=== PATIENT | female | born 2000 | race Caucasian/White ===

== ENCOUNTER 2018-08-31 20:53 | Emergency (ER) | payer MEDICAID, OTHER ==
[2018-08-31] MEDS ORDERED: DEXAMETHASONE SOD PHOS INJ 10 MG/1 ML VIAL IM ONE (22:32)
[2018-08-31] MEDS ORDERED: KETOROLAC TROMETHAMINE INJ/PF 30 MG/1 ML SDV IM ONE (22:32)
[2018-08-31] MEDS ORDERED: OXYCODONE-ACETAMINOPHEN 5-325 MG TABLET PO ONE (22:33)
--- NOTE | 2018-08-31 22:38 | ER Document Report ---
ED General - General Chief Complaint: Low Back Pain Stated Complaint: SCIATICA PAIN Time Seen by Provider: 08/31/18 22:25 Mode of Arrival: Ambulatory Information source: Patient TRAVEL OUTSIDE OF THE U.S. IN LAST 30 DAYS: No - HPI Patient complains to provider of: "sciatica" Onset: Last week Onset/Duration: Gradual Quality of pain: Sharp, Stabbing Severity: Severe Pain Level: 5 Context: No recent injury or exacerbating event Associated symptoms: None Exacerbated by: Denies Relieved by: Denies Similar symptoms previously: No Recently seen / treated by doctor: No Notes: 17-year-old female coming in today with left-sided "sciatica". Patient has had this diagnosis for couple of years. She is visiting here from [place]. Apparently the walk-in clinic is tried multiple remedies that have not helped her. She had some plain films done which were also negative. She denies bladder bowel dysfunction. Denies denies focal weakness. Denies urinary symptoms. Past Medical History - General Information source: Patient - Social History Smoking Status: Never Smoker Chew tobacco use (# tins/day): No Frequency of alcohol use: None Drug Abuse: None Family History: Reviewed & Not Pertinent Patient has suicidal ideation: No Patient has homicidal ideation: No Renal/ Medical History: Denies: Hx Peritoneal Dialysis Review of Systems - Review of Systems Notes: Constitutional: No fevers. No chills. EENT: No eye redness. No eye pain. No ear pain. No sore throat. Cardiovascular: No chest pain. No palpitations. Respiratory: No cough. No shortness of breath. No respiratory distress. Gastrointestinal: No abdominal pain. No nausea, vomiting, or diarrhea. Genitourinary: Atraumatic. No lesions. No pain. No discharge. Musculoskeletal: Left buttock pain, left lower extremity shooting pain Skin: No rash or lesions. Lymphatic: No swollen lymph nodes. Neurologic: No headache. No syncope. Psychiatric: No suicidal or homicidal ideation. Physical Exam - Vital signs Vitals: Temp Pulse Resp BP Pulse Ox 98.6 F 103 H 20 139/87 H 100 08/31/18 21:31 08/31/18 21:31 08/31/18 21:31 08/31/18 21:31 08/31/18 21:31 - Notes Notes: General: Well-developed, well-nourished. In no acute distress. Non-toxic appearing. Cardiac: Well-perfused. Regular rate and rhythm. No murmurs, rubs, or gallops. Pulmonary: No respiratory distress. No cyanosis. Bilateral lung fiels are clear to auscultation. Abdominal: Non-distended. Non-rigid. Bowels sounds are present in all four quadrants. No guarding or rebound. HEENT: Head is atraumatic. Conjunctivae not reddened. No tearing. PERRL. EOMI. Orbits atraumatic. No periorbital swelling or erythema. Oropharynx is without erythema, swelling, or exudates. Neck: Supple. No adenopathy. No meningismus. Dermatologic: Warm with good turgor. No rash. Atraumatic. Chest: Atraumatic. No chest wall tenderness to palpation. Musculoskeletal: Cervical, thoracic, and lumbar spines are nontender to palpation. There is no step-off. There is left paralumbosacral tenderness to palpation. There is left gluteal tenderness to palpation. The left lower extremity is not swollen. Genitourinary: Examination deferred Neurologic: No gross neurologic deficits. Psychiatric: Normal mood. Course - Re-evaluation Re-evalutation: 08/31/18 22:37 Patient presents like a lumbosacral radiculopathy. Does not sound like she has had very much workup. She probably needs an MRI at some point. Seems to be kind of young to have sciatic back pain. Any event the patient does not have any signs or symptoms of cauda equina syndrome. Will discharge home with some Ultracet as needed for moderate severe pain. She will get some Decadron and Toradol here parenterally - Vital Signs Vital signs: Temp Pulse Resp BP Pulse Ox 98.6 F 103 H 20 139/87 H 100 08/31/18 21:31 08/31/18 21:31 08/31/18 21:31 08/31/18 21:31 08/31/18 21:31 Discharge - Discharge Clinical Impression: Lumbosacral radiculopathy, Elevated blood pressure reading Condition: Good Disposition: HOME, SELF-CARE Instructions: Ice Packs ([facility]), Low Back Pain ([facility]), Oral Narcotic Medication ([facility]), Sciatica ([facility]) Additional Instructions: Please follow-up with the clinic indicated if you continue to have problems. May need further imaging that is not available at the emergency department. Prescriptions: Tramadol HCl/Acetaminophen [Ultracet 37.5 mg/325 mg Tablet] 1 each PO Q6H #12 tablet Forms: Elevated Blood Pressure Referrals: [facility] [Provider Group] - Follow up as needed
[2018-08-31 23:17] VITALS: BP 119/81
== END 2018-08-31 23:17 | disposition home or self-care (01) ==
LOC: ER 20:53
DX: M54.17 Radiculopathy, lumbosacral region (principal); R03.0 Elevated blood-pressure reading, without diagnosis of hypertension
CPT/HCPCS: 99283; 96372; J1885; J1100

== ENCOUNTER 2018-09-05 15:36 | Emergency (ER) | payer MEDICAID, OTHER ==
[2018-09-05 15:57] VITALS: BP 135/81
[2018-09-05] MEDS ORDERED: LIDOCAINE 5% (700 MG) TRANSDERMAL ADH..PATCH TP ONE (16:19)
[2018-09-05] MEDS ORDERED: DEXAMETHASONE SOD PHOS INJ 10 MG/1 ML VIAL IM ONE (16:20)
[2018-09-05] MEDS ORDERED: KETOROLAC TROMETHAMINE 60 MG/2 ML SDV IM ONE (16:20)
--- NOTE | 2018-09-05 16:21 | ER Document Report ---
HPI - HPI Time Seen by Provider: 09/05/18 16:02 Pain Level: 5 Context: Patient is a 17-year-old female who presents to the emergency department with a chief complaint of sciatic nerve pain. She was seen in the emergency department 5 days ago with the same complaints. Her pain is in her left back and radiates down her left buttock. She states that she has been dealing with her pain for the past 6 months. She also has seen physical therapy, with no relief. She is from [place] and is here visiting. She states that she continues to have pain despite being on tramadol and taking ibuprofen 800 mg 4 times a day. - CONSTITUTIONAL Constitutional: DENIES: Fever, Chills - EENT EENT: DENIES: Sore Throat, Ear Pain, Eye problems - NEURO Neurology: DENIES: Headache, Weakness, Vision blurred, Dizzinesss / Vertigo - CARDIOVASCULAR Cardiovascular: DENIES: Chest pain - RESPIRATORY Respiratory: DENIES: Trouble Breathing, Coughing - GASTROINTESTINAL Gastrointestinal: DENIES: Abdominal Pain, Black / Bloody Stools - URINARY Urinary: DENIES: Dysuria, Urgency, Frequency - REPRODUCTIVE Reproductive: DENIES: : - MUSCULOSKELETAL Musculoskeletal: REPORTS: Extremity pain - left leg Past Medical History - General Information source: Patient - Social History Smoking Status: Never Smoker Chew tobacco use (# tins/day): No Frequency of alcohol use: None Drug Abuse: None Family History: Reviewed & Not Pertinent Patient has suicidal ideation: No Patient has homicidal ideation: No Renal/ Medical History: Denies: Hx Peritoneal Dialysis Vertical Provider Document - CONSTITUTIONAL Agree With Documented VS: Yes Exam Limitations: No Limitations General Appearance: No Apparent Distress - INFECTION CONTROL TRAVEL OUTSIDE OF THE U.S. IN LAST 30 DAYS: No - HEENT HEENT: Atraumatic, Normocephalic - RESPIRATORY Respiratory: Breath Sounds Normal, No Respiratory Distress - CARDIOVASCULAR Cardiovascular: Regular Rate, Regular Rhythm Pulses: Normal: Radial - GI/ABDOMEN Gastrointestinal: Abdomen Soft - MUSCULOSKELETAL/EXTREMETIES Musculoskeletal/Extremeties: FROM, Tender - Left buttock - NEURO Level of Consciousness: Awake, Alert, Appropriate Motor/Sensory: No Motor Deficit, No Sensory Deficit Deep Tendon Reflexes: 2+ - DERM Integumentary: Warm, Dry Course - Re-evaluation Re-evalutation: 09/05/18 16:28 Differential diagnosis for back pain includes muscle spasm, muscle strain, slipped disc cauda equina syndrome, vertebral fracture, vertebral tumor, epidural abscess, pyelonephritis, or AAA. Based on history and exam, the most likely etiology of the patient's back pain is chronic in nature. Emergent MRI is not indicated at this time because the patient does not have new weakness, or cauda equina syndrome. Patient does not have bladder or bowel dysfunction. Patient does not have history of IV drug use, therefore, I do not suspect an epidural abscess. Patient does not have recent weight loss or night sweats, and does not have a known history of cancer. She will be given a dose of Decadron and Toradol here in the emergency department and she will be sent home with lidocaine patches and Toradol to go home with. She is in agreement with this plan. Verbal discharge instructions were given to the patient. They verbalized understanding. They are stable for discharge. - Vital Signs Vital signs: Temp Pulse Resp BP Pulse Ox 98.8 F 105 H 16 135/81 H 98 09/05/18 15:53 09/05/18 15:53 09/05/18 15:53 09/05/18 15:53 09/05/18 15:53 Discharge - Discharge Clinical Impression: Sciatica Qualifiers: Laterality: left Qualified Code(s): M54.32 - Sciatica, left side Condition: Stable Disposition: HOME, SELF-CARE Additional Instructions: You were seen today in the emergency department for back pain. Your back pain is most consistent with sciatic nerve pain. You may take acetaminophen 1000 mg every 6 hours as needed for the pain. You have been prescribed lidocaine patches, use as directed. You may also buy [id number] Aspercreme with lidocaine and apply to the area per box instructions if needed. You have been given Toradol, medication for pain. Please do not take ibuprofen when you take Toradol. If you develop a fever greater than 100.4 F, lose bowel or bladder function, are unable to walk, or have any symptoms that are worrisome to you, please return to the emergency department.. Prescriptions: Ketorolac Tromethamine [Toradol 10 mg Tablet] 10 mg PO Q6HP PRN #20 tablet PRN Reason: Lidocaine [Lidoderm 5% (700 mg) Transdermal Patch] 1 patch TP DAILY #7 adh..patch
== END 2018-09-05 16:39 | disposition home or self-care (01) ==
LOC: ER 15:36
DX: M54.32 Sciatica, left side (principal); M54.9 Dorsalgia, unspecified
CPT/HCPCS: 99283; 96372; J1885; J1100

== ENCOUNTER 2019-06-27 00:05 | Emergency (ER) | payer OTHER, MEDICAID ==
--- NOTE | 2019-06-27 11:22 | EKG REPORT ---
SEVERITY:- NORMAL ECG - SINUS RHYTHM : Confirmed by: Juli Drew MD 27-Jun-2019 11:21:40
== END 2019-06-27 00:37 | disposition left against medical advice (07) ==
LOC: ER 00:05
DX: Z53.21 Procedure and treatment not carried out due to patient leaving prior to being seen by health care provider (principal)
CPT/HCPCS: 93005; 93010

== ENCOUNTER 2019-06-28 19:51 | Emergency (ER) | payer OTHER, MEDICAID ==
--- NOTE | 2019-06-28 20:26 | ER Document Report ---
ED Medical Screen (RME) - General Chief Complaint: Flank Pain Stated Complaint: SHOULDER PAIN/BACK PAIN Time Seen by Provider: 06/28/19 20:23 Mode of Arrival: Ambulatory Information source: Patient Notes: Patient presents complaining of upper abdominal pain that goes to her upper back. Patient states that she had an episode last week that resolved then returned yesterday that resolved and then returned again today. Patient does report nausea. Patient denies any fever or urinary symptoms. Patient denies any cough or cold symptoms. Patient is currently 6 weeks post after being induced when she developed preeclampsia. I have greeted and performed a rapid initial assessment of this patient. A comprehensive ED assessment and evaluation of the patient, analysis of test results and completion of the medical decision making process will be conducted by additional ED providers. TRAVEL OUTSIDE OF THE U.S. IN LAST 30 DAYS: No - Related Data Allergies/Adverse Reactions: No Known Allergies Allergy (Verified 09/05/18 16:18) Past Medical History Renal/ Medical History: Denies: Hx Peritoneal Dialysis Physical Exam - Vital signs Vitals: Temp Pulse Resp BP Pulse Ox 97.8 F 70 16 140/82 H 100 06/28/19 19:55 06/28/19 19:55 06/28/19 19:55 06/28/19 19:55 06/28/19 19:55 - Abdominal Tenderness: Tender - Epigastric, right upper quadrant Course - Vital Signs Vital signs: Temp Pulse Resp BP Pulse Ox 97.8 F 70 16 140/82 H 100 06/28/19 19:55 06/28/19 19:55 06/28/19 19:55 06/28/19 19:55 06/28/19 19:55
[2019-06-28 21:04] LABS: ABSOLUTE BASOPHILS # (AUTO) 0.1 10^3/uL (0.0-0.2); ABSOLUTE EOSINOPHILS # (AUTO) 0.2 10^3/uL (0.0-0.6); ABSOLUTE MONOCYTES (AUTO) 0.7 10^3/uL (0.1-1.4); ABSOLUTE NEUT (AUTO) 6.3 10^3/uL (1.7-8.2); BASOPHILS % (AUTO) 0.9 % (0-2); EOSINOPHILS % (AUTO) 2.4 % (0-6); HEMATOCRIT 41.4 % (36.0-47.0); HEMOGLOBIN 13.9 g/dL (12.0-15.5); LYMPHOCYTES % (AUTO) 28.8 % (13-45); MEAN CORPUSCULAR HEMOGLOBIN 26.4 pg (27.0-33.4); MEAN CORPUSCULAR HGB CONC 33.5 g/dL (32.0-36.0); MEAN CORPUSCULAR VOLUME 79 fl (80-97); MONOCYTES % (AUTO) 6.7 % (3-13); PLATELET COUNT 425 10^3/uL (150-450); RED BLOOD COUNT 5.26 10^6/uL (3.72-5.28); RED CELL DISTRIBUTION WIDTH 14.6 % (11.5-14.0); SEGMENTED NEUTROPHILS % (AUTO) 61.2 % (42-78); TOTAL CELLS COUNTED % (AUTO) 100 %; WHITE BLOOD COUNT 10.3 10^3/uL (4.0-10.5)
[2019-06-28 21:25] LABS: ALBUMIN 4.6 g/dL (3.5-5.0); ALKALINE PHOSPHATASE 233 U/L (38-126); ANION GAP 12 (5-19); ASPARTATE AMINO TRANSFERASE 422 U/L (14-36); BILIRUBIN,DIRECT 1.3 mg/dL (0.0-0.4); BILIRUBIN,TOTAL 2.2 mg/dL (0.2-1.3); BLOOD UREA NITROGEN 7 mg/dL (7-20); CALCIUM 10.4 mg/dL (8.4-10.2); CARBON DIOXIDE 29 mmol/L (22-30); CHLORIDE 101 mmol/L (98-107); GLUCOSE 100 mg/dL (75-110); POTASSIUM 4.5 mmol/L (3.6-5.0); TOTAL PROTEIN 8.3 g/dL (6.3-8.2)
[2019-06-28 21:41] LABS: APPEARANCE,URINE CLEAR; BILIRUBIN,URINE NEGATIVE (NEGATIVE); COLOR,URINE YELLOW; GLUCOSE, URINE NEGATIVE (NEGATIVE); KETONES,URINE NEGATIVE (NEGATIVE); LEUKOCYTE ESTERASE,URINE TRACE (NEGATIVE); NITRITE,URINE NEGATIVE (NEGATIVE); PROTEIN,URINE NEGATIVE (NEGATIVE); URINE SPECIFIC GRAVITY 1.003; UROBILINOGEN,URINE NEGATIVE mg/dL (<2.0)
--- NOTE | 2019-06-28 21:57 | RADIOLOGY REPORT (SQ) ---
EXAM DESCRIPTION: US ABDOMEN LIMITED COMPLETED DATE/TME: 06/28/2019 20:25 CLINICAL HISTORY: 18 years, Female, epig, RUQ pain COMPARISON: None. TECHNIQUE: Axial 2-D grayscale images of the abdomen were acquired. Doppler was utilized. LIMITATIONS: None. FINDINGS: Visualized portions of the pancreas appear normal in echogenicity. Abdominal aortic measurements are as follows: Proximal: 2.3 cm Mid: 2.0 cm Distal: 1.5 cm Liver is normal in echogenicity. It measures 16.4 cm in length. Antegrade flow is documented within the main portal vein. Gallbladder wall thickness measures 3 mm. Multiple gallstones and sludge are noted. Sonographic Foster sign was positive. In addition, the gallbladder appears distended. Common bile duct diameter measures 7 mm, borderline enlarged. No significant pericholecystic free fluid. Right kidney measures 11.8 cm in length. No hydronephrosis. IMPRESSION: Somewhat distended gallbladder demonstrating sludge/gallstones, mild wall thickening, positive sonographic Foster sign. Overall, findings are concerning for acute cholecystitis. Slightly prominent common bile duct measuring up to 7 mm in diameter. copyright 2010 [employer]- All Rights Reserved
[2019-06-28 23:54] VITALS: BP 133/78
--- NOTE | 2019-06-28 23:59 | ER Document Report ---
ED GI/ <LEEANNE ARCE - Last Filed: 06/29/19 05:10> - General Mode of Arrival: Ambulatory Information source: Patient TRAVEL OUTSIDE OF THE U.S. IN LAST 30 DAYS: No - HPI Patient complains to provider of: Abdominal pain Onset: Other - Started last week episode yesterday and then again today. Timing/Duration: Intermittent Quality of pain: Achy, Sharp Severity at maximum: Moderate Severity in ED: Moderate Pain Level: 3 Location: RUQ Vaginal bleeding (Compared to normal period): None LMP: 6 weeks Associated symptoms: Nausea Exacerbated by: Movement, Food Relieved by: Denies Similar symptoms previously: Yes Recently seen / treated by doctor: No <CATHI EDOUARD - Last Filed: 06/29/19 08:13> - General Chief Complaint: Upper Abdominal Pain Stated Complaint: SHOULDER PAIN/BACK PAIN Time Seen by Provider: 06/28/19 20:23 Notes: 18-year-old female presented to ED for complaint of right upper quadrant pain tenderness that goes through to her back and between her shoulder blades. States she had a similar episode last week and then it returned and started again yesterday. She states that was relieved and then started again today. She has been nauseated most of the day. She states she is currently 6 weeks after having an induced labor for preeclampsia. Patient is alert oriented respirations regular unlabored speaking in full sentences. Her labs and ultrasound were done before I examined the patient. She does have cholelithiasis with cholecystitis. She does have elevated liver enzymes. 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 She states she has no friends or family in the area. She states she is here to get on Wednesday and her to be is working right now. She verbalized understanding that she needs to follow-up either at this hospital or at another local hospital as soon as possible. (CATHI EDOUARD) - Related Data Allergies/Adverse Reactions: No Known Allergies Allergy (Verified 09/05/18 16:18) Past Medical History - General Information source: Patient - Social History Smoking Status: Never Smoker Frequency of alcohol use: None Drug Abuse: None Lives with: Parents - In [place] Family History: Reviewed & Not Pertinent Patient has suicidal ideation: No Patient has homicidal ideation: No - Past Medical History Cardiac Medical History: Reports: None Pulmonary Medical History: Reports: None EENT Medical History: Reports: None Neurological Medical History: Reports: None Endocrine Medical History: Reports: None Renal/ Medical History: Reports: Other - Eclampsia Malignancy Medical History: Reports: None GI Medical History: Reports: None Musculoskeletal Medical History: Reports None Skin Medical History: Reports None Psychiatric Medical History: Reports: None Traumatic Medical History: Reports: None Infectious Medical History: Reports: None Surgical Hx: Negative Past Surgical History: Reports: None - Immunizations Immunizations up to date: Yes <CATHI EDOUARD - Last Filed: 06/29/19 08:13> Review of Systems - Review of Systems Constitutional: No symptoms reported EENT: No symptoms reported Cardiovascular: No symptoms reported Respiratory: No symptoms reported Gastrointestinal: Abdominal pain, Nausea Genitourinary: No symptoms reported Female Genitourinary: No symptoms reported Musculoskeletal: No symptoms reported Skin: No symptoms reported Hematologic/Lymphatic: No symptoms reported Neurological/Psychological: No symptoms reported -: Yes All other systems reviewed and negative <CATHI EDOUARD - Last Filed: 06/29/19 08:13> Physical Exam - Vital signs Interpretation: Normal - General General appearance: Appears well, Alert - HEENT Head: Normocephalic, Atraumatic Eyes: Normal Pupils: PERRL - Respiratory Respiratory status: No respiratory distress Chest status: Nontender Breath sounds: Normal Chest palpation: Normal - Cardiovascular Rhythm: Regular Heart sounds: Normal auscultation Murmur: No - Abdominal Inspection: Normal Distension: No distension Bowel sounds: Normal Tenderness: Tender, Foster's sign, Guarding Organomegaly: No organomegaly - Back Back: Normal, Nontender - Extremities General upper extremity: Normal inspection, Nontender, Normal color, Normal ROM, Normal temperature General lower extremity: Normal inspection, Nontender, Normal color, Normal ROM, Normal temperature, Normal weight bearing. No: Lorie's sign - Neurological Neuro grossly intact: Yes Cognition: Normal Orientation: AAOx4 Kevin Coma Scale Eye Opening: Spontaneous Kevin Coma Scale Verbal: Oriented [place] Coma Scale Motor: Obeys Commands Kevin Coma Scale Total: 15 Speech: Normal Motor strength normal: LUE, RUE, LLE, RLE Sensory: Normal - Psychological Associated symptoms: Normal affect, Normal mood - Skin Skin Temperature: Warm Skin Moisture: Dry Skin Color: Normal <CATHI EDOUARD - Last Filed: 06/29/19 08:13> - Vital signs Vitals: Temp Pulse Resp BP Pulse Ox 97.8 F 70 16 140/82 H 100 06/28/19 19:55 06/28/19 19:55 06/28/19 19:55 06/28/19 19:55 06/28/19 19:55 Course - Laboratory Result Diagrams: 06/28/19 20:40 06/28/19 20:40 - Diagnostic Test Radiology reviewed: Image reviewed <LEEANNE ARCE - Last Filed: 06/29/19 05:10> - Laboratory Result Diagrams: 06/28/19 20:40 06/28/19 20:40 - Diagnostic Test Radiology reviewed: Image reviewed, Reports reviewed <CATHI EDOUARD - Last Filed: 06/29/19 08:13> - Re-evaluation Re-evalutation: 06/29/19 05:10 The patient was seen and evaluated by me with the midlevel provider. The patient has gallstone and possible cholecystitis on US. Patient was told of her findings but she signed out AMA since she has new born 6 week old at home. The patient understands she can get much sicker and even if she leaves. Will prescribed patient Augmentin and have her follow up with a Surgeon or in an ER [facility]. (LEEANNE ARCE) 06/29/19 00:08 She was given written report of ultrasound and labs. 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 She states that she cannot states she does not have anyone else to watch her 6 weeks old child. She has been given instructions that she needs to follow-up either at this hospital or another hospital promptly to have this gallbladder removed. Patient has verbalized understanding and agreement with this. Patient was treated with Augmentin and a dispense pack of [place] and Zofran for her pain nausea. She stated she would follow-up as soon as possible. She is leaving AGAINST MEDICAL ADVICE. (CATHI EDOUARD) - Vital Signs Vital signs: Temp Pulse Resp BP Pulse Ox 97.7 F 73 20 133/78 H 100 06/28/19 23:53 06/28/19 23:53 06/28/19 23:53 06/28/19 23:53 06/28/19 23:53 - Laboratory Laboratory results interpreted by me: 06/28/19 06/28/19 06/28/19 20:40 20:40 20:40 MCV 79 L MCH 26.4 L RDW 14.6 H Calcium 10.4 H Total Bilirubin 2.2 H Direct Bilirubin 1.3 H AST 422 H Alkaline Phosphatase 233 H Total Protein 8.3 H Ur Leukocyte Esterase TRACE H Discharge <LEEANNE ARCE - Last Filed: 06/29/19 05:10> <SILKECATHI - Last Filed: 06/29/19 08:13> - Discharge Clinical Impression: Cholelithiasis with cholecystitis Qualifiers: Cholelithiasis location: gallbladder Cholecystitis acuity: acute Biliary obstruction: with biliary obstruction Qualified Code(s): K80.01 - Calculus of gallbladder with acute cholecystitis with obstruction Disposition: AGAINST MEDICAL ADVICE Additional Instructions: Gallbladder Disease Your evaluation shows evidence of gallbladder disease. The gallbladder is a pouch under the liver which stores bile. Stones, infection, or irritation of the gallbladder cause attacks of pain. Certain foods -- fats in particular -- may provoke attacks. The usual treatment for gallbladder disease is surgical removal of the gallbladder -- called a cholecystectomy. You will be referred to a physician qualified to advise you on the best treatment for your problem. Hospitalization is not necessary. Take clear liquids only until you are painfree. After that, you should stay on a low-fat diet, with frequent SMALL meals. Call the doctor or return at once if you develop severe pain, repeated vomiting, fever, or jaundice (a yellow color in the skin and whites of the eyes). Leaving AGAINST MEDICAL ADVICE with this gallstones with gallbladder infection. You need your gallbladder removed. You have stated you need to go and milk pickup driver your 6 weeks old daughter and cannot stay at this time. Please return to this hospital or another hospital promptly for treatment. I have given you a written report of the labs and ultrasound for wherever you decide to follow-up. Augmentin Augmentin is a mixture of amoxicillin and clavulanate. Amoxicillin is a member of the penicillin family. It covers the germs likely to cause ear, bronchial, and urinary infections better than plain penicillin. The addition of clavulanate allows it to cover staph infections of the skin, as well as resistant cases of ear and sinus infections. Your physician has chosen Augmentin for you because of the special nature of your situation. Augmentin is best taken with meals. Nausea after taking the medication is rare, but can occur. Diarrhea can occur, particularly in small children. Vaginal yeast infections, and oral thrush in infants are also common. Contact your physician if these problems occur. Allergy to penicillins is common. If you have had an allergic reaction to any drug of the penicillin family, you should never take any other penicillin. Notify your doctor at once if you develop hives, shortness of breath, swelling, or faintness. Oral Narcotic Medication You have been given a prescription for pain control. This medication is a narcotic. It's best taken with food, as nausea can result if taken on an empty stomach. Don't operate machinery or drive within six hours of taking this medic ation. Do not combine this medicine with alcohol, or with any medication which can cause sedation (such as cold tablets or sleeping pills) unless you get permission from the physician. Narcotics tend to cause constipation. If possible, drink plenty of fluids and eat a diet high in fiber and fruits. Antinausea Medication You have been given a medication to suppress nausea and vomiting. This type of medication can be given as a shot, pill, or suppository. It will usually last for many hours. Pills and shots usually last six to eight hours, suppositories last about 12 hours. For the typical illness, only one or two doses of the medication may be necessary. Mild lightheadedness may occur. This type of medicine can cause drowsiness. Do not drive or operate dangerous machinery while under its influence. Do not mix with alcohol. See your doctor at once if you have muscle spasms or tightness, or uncontrollable motions (particularly of the neck, mouth, or jaw). Persistent vomiting or severe lightheadedness should also be evaluated by the physician. FOLLOW-UP CARE: If you have been referred to a physician for follow-up care, call the physicians office for an appointment as you were instructed or within the next two days. If you experience worsening or a significant change in your symptoms, notify the physician immediately or return to the Emergency Department at any time for re-evaluation. Prescriptions: Amox Tr/Potassium Clavulanate [Augmentin 545-125 Tablet] 1 tab PO BID 10 Days tablet
[2019-06-29] MEDS ORDERED: AMOXICILLIN TR/POT CLAVULANATE 500-125 MG TAB PO ONE
[2019-06-29] MEDS ORDERED: HYDROCODONE/ACETAMINOPHEN 5-325 MG (6 TAB/ER DISP) PO PRN (00:01)
[2019-06-29] MEDS ORDERED: ONDANSETRON ODT 4 MG TAB (6 TAB/ER DISP) PO PRN (00:01)
== END 2019-06-29 00:13 | disposition left against medical advice (07) ==
LOC: ER 19:51
DX: K80.01 Calculus of gallbladder with acute cholecystitis with obstruction (principal); R10.11 Right upper quadrant pain; R11.0 Nausea; R74.8 Abnormal levels of other serum enzymes
CPT/HCPCS: 36415; 76705; 80053; 81001; 83690; 84703; 85025; 99284